=== PATIENT | male | born 1995 | race American Indian/Alaskan Native ===

== ENCOUNTER 2017-09-18 17:39 | Emergency (ER) | payer OTHER ==
[2017-09-18 17:49] VITALS: BP 108/69
[2017-09-18] MEDS ORDERED: MOTRIN PO ONE (17:49)
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
[2017-09-18] MEDS ORDERED: DILAUDID IV ONE (21:07)
[2017-09-18] MEDS ORDERED: NACL 0.9% 1000 ML 1,000 ML IV ONE (21:07)
[2017-09-18 21:23] LABS: Basophils % (Auto) 0.4 % (0.0-1.8); Eosinophils % (Auto) 0.1 % (0.0-4.3); Hematocrit 44.5 % (35.5-45.6); Hemoglobin 14.7 gm/dl (11.8-15.2); Lymphocytes # (Auto) 1.3 K/mm3 (1.2-5.4); Lymphocytes % (Auto) 23.3 % (13.4-35.0); Mean Corpuscular HGB Conc 33 % (32-34); Mean Corpuscular Hemoglobin 29 pg (28-32); Mean Corpuscular Volume 87 fl (84-94); Monocytes # (Auto) 0.4 K/mm3 (0.0-0.8); Monocytes % (Auto) 6.5 % (0.0-7.3); Platelet Count 328 K/mm3 (140-440); Red Blood Count 5.12 M/mm3 (3.65-5.03); Red Cell Distribution Width 14.1 % (13.2-15.2)
[2017-09-18 21:31] LABS: BUN/Creatinine Ratio 11; Blood Urea Nitrogen 11 mg/dL (9-20); Calcium 9.9 mg/dL (8.4-10.2); Hemolysis Index 0; INR 0.95 (0.87-1.13)
[2017-09-18 21:32] LABS: Partial Thromboplastin Time 28.5 Sec. (24.2-36.6)
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
== END 2017-09-18 23:40 | disposition home or self-care (01) ==
LOC: ED 17:39
DX: S29.011A Strain of muscle and tendon of front wall of thorax, initial encounter (principal); J45.909 Unspecified asthma, uncomplicated; R07.81 Pleurodynia; F17.200 Nicotine dependence, unspecified, uncomplicated; F12.90 Cannabis use, unspecified, uncomplicated; V87.7XXA Person injured in collision between other specified motor vehicles (traffic), initial encounter; Y93.89 Activity, other specified; Y99.8 Other external cause status; Y92.488 Other paved roadways as the place of occurrence of the external cause
CPT/HCPCS: 36415; 71260; 74177; 80048; 82550; 85025; 85610; 85730; 96374; 99284; J1170; J7030; Q9967

== ENCOUNTER 2020-07-28 19:52 | Emergency (ER) | payer SELFPAY ==
[2020-07-28] MEDS ORDERED: TETANUS,DIPH,PERTUSS(ACELL) VACCINE 0.5 ML SYRINGE IM ONE (22:33)
[2020-07-28] MEDS ORDERED: LIDOCAINE (2%) 20 MG/1 ML VIAL 20 ML MDV INFILTRATI ONE (22:33)
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
[2020-07-29 00:41] VITALS: BP 133/52
== END 2020-07-28 23:40 | disposition home or self-care (01) ==
LOC: ED 19:52
DX: S81.851A Open bite, right lower leg, initial encounter (principal); J45.909 Unspecified asthma, uncomplicated; Z98.890 Other specified postprocedural states; Z79.1 Long term (current) use of non-steroidal anti-inflammatories (NSAID); Z79.899 Other long term (current) drug therapy; W54.0XXA Bitten by dog, initial encounter; Y93.89 Activity, other specified; Y92.89 Other specified places as the place of occurrence of the external cause; Y99.8 Other external cause status
CPT/HCPCS: 90471; 90715; 99282